=== PATIENT | female | born 1940 | race Caucasian/White ===

== ENCOUNTER 2021-09-03 09:22 | Day surgery (SDC) | payer MEDICARE ==
[2021-09-03] VITALS (12 sets, daily range): BP systolic 116–165; BP diastolic 61–92; PULSE 71–110; TEMP 97.7–98.6
[~2021-09-03] VITALS: Ht 162.6 cm; Wt 60.9 kg
[2021-09-03] MEDS ORDERED: ZOCOR 20MG20 MG PO (09:54)
[2021-09-03] MEDS ORDERED: NEURONTIN300 MG/CAP PO (09:55)
[2021-09-03] MEDS ORDERED: GLUCOPHAGE500 MG/TAB PO (09:55)
[2021-09-03] MEDS ORDERED: TOPROL XL 25MG25 MG PO (09:57)
[2021-09-03] MEDS ORDERED: ZYRTEC 10MG10 MG PO (09:59)
[2021-09-03] MEDS ORDERED: PROTONIX20 MG PO (10:00)
[2021-09-03] MEDS ORDERED: PEPCID 20MG TAB20 MG PO (10:00)
[2021-09-03 10:20] LABS: HEMATOCRIT 44.1 % (37.0-47.0); HEMOGLOBIN 14.8 g/dl (12.5-16.0); MEAN CELL VOLUME 89 fl (80.0-100.0); MEAN CORPUSCULAR HEMOGLOBIN 30 pg (27.0-31.0); MEAN CORPUSCULAR HGB CONC 34 g/dl (33.0-37.0); MEAN PLATELET VOLUME 9.4 fl (7.4-10.4); PLATELET COUNT 275 K/mm3 (130-400); RED BLOOD COUNT 4.98 M/mm3 (4.10-5.30); REDCELL DISTRIBUTION WIDTH-CV 12.4 % (11.5-14.5)
[2021-09-03 10:29] LABS: INR 1.1 (0.8-3.0); PROTHROMBIN TIME 12.6 SECONDS (9.7-12.8)
[2021-09-03 10:32] LABS: PARTIAL THROMBOPLASTIN TIME 30.7 SECONDS (26.0-37.0)
[2021-09-03 10:34] LABS: CALCIUM 10.1 mg/dL (8.4-10.2); CREATININE, serum 0.83 mg/dL (0.57-1.11)
--- NOTE | 2021-09-03 10:35 | NUR ---
PRE PROCEDURE ASSESSMENT COMPLETED IN [facility]. SEE MERGE FOR ALL MEDICATION ADMINISTRATION TIMES/DOSAGES AND INTRA/POST PROCEURE SEDATION ASSESSMENTS.
--- NOTE | 2021-09-03 13:00 | NUR ---
Pt. admitted to room 347. Pt. alert and oriented x4. Supportive daughter at bedside. Frequent vitals and post cardiac cath checks in place. Pt. oriented to the unit.
--- NOTE | 2021-09-03 13:43 | NUR ---
Pt. vomited a moderate amount. Pt. and daughter report her nausea may be from not eating since 1729 yesterday. Saltine crackers provided. Pt. resting in bed eating saltines and no vomiting at this time. Call light and belongings in reach.
--- NOTE | 2021-09-03 14:23 | NUR ---
Pt. still intermittent nauseated and unable to eat her lunch. Pt. eating saltines off and on. Pt.'s daughter requesting to speak w/ Dr. Shin, Dr. Shin called and pt.'s daughter's number provided.
--- NOTE | 2021-09-03 21:11 | NUR ---
Patient assessed around 2004. Alert and oriented. Usually makes needs known, but did not call for assistance to go to the bathroom due to urgency. Bed alarm in use to notify staff when getting up. Educated provided to patient about safety and voiced understanding. R radial heart cath site has arm board in use to protect site. Bandaid CDI. Left forearm INT. Given PRN Zofran for nausea as requested. Voices no further questions, needs, or concerns at this time. In bed with call light within reach.
[2021-09-04 05:04] VITALS: BP 150/67; PULSE 72; TEMP 97.9
--- NOTE | 2021-09-04 06:10 | NUR ---
Patient has been in bed with call light within reach. Denies having pain and discomfort this morning. Voices no questions, needs, or concerns at this time.
[2021-09-04 07:09] VITALS: BP 146/91; PULSE 74; TEMP 97.7
--- NOTE | 2021-09-04 07:20 | NUR ---
Assisted pt to the restroom, pt was steady on her feet. Pt does have pain complaints in her right arm, hard to assess due to language. Bandaide to right radial, CDI. Breakfast has been ordered, pt denies any other needs.
--- NOTE | 2021-09-04 08:25 | NUR ---
Dr Mesa in visiting with pt, daughter is present at this time. Discharge instructions discussed as well as discharge medications and what to what for. Pt informed him of the pain in her right arm, he is okay with this. She has had breakfast, no complaints. All questions answered.
[2021-09-04] MEDS ORDERED: BRILINTA90 MG PO (08:33)
[2021-09-04] MEDS ORDERED: ASPIRIN 81M81 MG/TA2 PO (08:33)
[2021-09-04] MEDS ORDERED: LIPITOR20 MG PO (08:33)
--- NOTE | 2021-09-04 10:10 | NUR ---
Reviewed discharge instructions with pt and daughter to include follow up appointment and prescriptions. INT removed from left forearm. Informed her to ring call light when she is ready to leave.
== END 2021-09-04 10:30 | disposition home or self-care (01) ==
LOC: SURG 09:22 → COL.CAR 09:22 → SURG 13:30 → COL.CAR 09-04 10:30
PROVIDERS: Internal Medicine Cardiovascular Disease
DX: I25.118 Atherosclerotic heart disease of native coronary artery with other forms of angina pectoris (principal); I25.9 Chronic ischemic heart disease, unspecified; I10 Essential (primary) hypertension; E78.5 Hyperlipidemia, unspecified; E11.9 Type 2 diabetes mellitus without complications; E03.9 Hypothyroidism, unspecified; M54.9 Dorsalgia, unspecified; K21.9 Gastro-esophageal reflux disease without esophagitis; R53.83 Other fatigue; Z79.899 Other long term (current) drug therapy; Z79.84 Long term (current) use of oral hypoglycemic drugs; Z79.82 Long term (current) use of aspirin
CPT/HCPCS: OP; C1725; C1769; C1874; C1887; C9600; C9601; J1644; J2250; J2405; J3010; J7030; Q9967

== ENCOUNTER 2021-10-05 10:51 | Day surgery (SDC) | payer MEDICARE ==
[2021-10-05] VITALS (12 sets, daily range): BP systolic 137–171; BP diastolic 58–91; PULSE 54–76; TEMP 97.6–99.3
[~2021-10-05] VITALS: Ht 162.6 cm; Wt 61.1 kg
[~2021-10-05 10:51] MED LIST: ASPIRIN 81M81 MG/TA2 PO; BRILINTA90 MG PO; GLUCOPHAGE500 MG/TAB PO; LIPITOR20 MG PO; NEURONTIN300 MG/CAP PO; PEPCID 20MG TAB20 MG PO; PROTONIX20 MG PO; TOPROL XL 25MG25 MG PO; ZOCOR 20MG20 MG PO; ZYRTEC 10MG10 MG PO
[2021-10-05 11:37] LABS: HEMATOCRIT 42.9 % (37.0-47.0); HEMOGLOBIN 14.3 g/dl (12.5-16.0); MEAN CELL VOLUME 90 fl (80.0-100.0); MEAN CORPUSCULAR HEMOGLOBIN 30 pg (27-31); MEAN CORPUSCULAR HGB CONC 33 g/dl (33.0-37.0); MEAN PLATELET VOLUME 9.6 fl (7.4-10.4); PLATELET COUNT 307 K/mm3 (130-400); RED BLOOD COUNT 4.76 M/mm3 (4.10-5.30); REDCELL DISTRIBUTION WIDTH-CV 12.7 % (11.5-14.5)
[2021-10-05 11:43] LABS: INR 1.2 (0.8-3.0)
[2021-10-05 11:45] LABS: PARTIAL THROMBOPLASTIN TIME 33.1 SECONDS (26.0-37.0)
[2021-10-05 12:03] LABS: CALCIUM 9.9 mg/dL (8.4-10.2); CREATININE, serum 0.84 mg/dL (0.57-1.11)
[2021-10-05] MEDS ORDERED: OSCAL 500 TAB500 MG PO (12:17)
--- NOTE | 2021-10-05 13:19 | NUR ---
SEE MERGE DOCUMENTATION FOR MEDICATION ADMINISTRATION AND INTRA/POST PROCEDURE SEDATION ASSESSMENTS.
--- NOTE | 2021-10-05 14:35 | NUR ---
PATIENT ADMITED INTO ROOM 325 POST HEART CATH WITH STENTS X1. ORIENTED X2 BUT DROWSY. VSS. RIGHT RADIAL TR BAND WITH 12CC OF AIR, NO BLEEDING. NO C/O CHEST PAIN OR NAUSEA. POST OP FLUIDS INFUSING INTO LEFT AC IV. HEAD TO TOE ASSESSMENT COMPLETE. CALL LIGHT IN REACH.
--- NOTE | 2021-10-05 15:00 | NUR ---
& SON AT BEDSIDE.
--- NOTE | 2021-10-05 16:35 | NUR ---
PATIENT IS 2 HOUR POST OP, REMOVED 5CC OF AIR FROM RIGHT RADIAL BAND. NOTED SMALL AMOUNTS OF BLOODY DRAINAGE FROM RADIAL SITE. INSTILLED 3CC BACK INTO RADIAL BAND. WILL MONITOR.
--- NOTE | 2021-10-05 17:30 | NUR ---
RELEASED 5CC OF AIR FROM RIGHT RADIAL BAND. PATIENT WAS FOUND TO HAVE UNDONE THE STRAPS TO HER TR BAND STATING "ITS TO TIGHT". NURSING EDUCATED ABOUT TR BAND AND BLEEDING. NO C/O NUMBNESS OR TINGLING TO RUE.
--- NOTE | 2021-10-05 18:15 | NUR ---
REMOVED ANOTHER 3CC OF AIR FROM RIGHT RADIAL BAND, NO BLEEDING AT THIS TIME. WILL MONITOR.
--- NOTE | 2021-10-05 21:32 | NUR ---
RT RADIAL SITE CLEAN DRY INTACT.
[2021-10-06 03:42] VITALS: BP 116/63; PULSE 69; TEMP 98.4
[2021-10-06 07:24] VITALS: BP 135/59; PULSE 76; TEMP 98.6
--- NOTE | 2021-10-06 08:33 | NUR ---
pt doing well this morning, no pain complaints. She has tolerated breakfast with no issues. Small bruise to her right wrist, otherwise looks fine. Pt hopeful to get to go home today. No other needs or questions, call light within reach
--- NOTE | 2021-10-06 11:16 | NUR ---
Reviewed discharge instructions with pt. Pt escorted out at this time
== END 2021-10-06 11:16 | disposition home or self-care (01) ==
LOC: COL.CAR 10:51 → SURG 12:35 → COL.CAR 10-06 11:16
PROVIDERS: Internal Medicine Cardiovascular Disease
DX: I25.10 Atherosclerotic heart disease of native coronary artery without angina pectoris (principal); I51.9 Heart disease, unspecified; I10 Essential (primary) hypertension; E78.5 Hyperlipidemia, unspecified; Z79.84 Long term (current) use of oral hypoglycemic drugs; Z79.899 Other long term (current) drug therapy; Z79.82 Long term (current) use of aspirin
CPT/HCPCS: OP; C1725; C1769; C1874; C1887; C9600; J1644; J2250; J3010; J7030; Q9967